=== PATIENT | female | born 1990 | race Native Hawaiian/Other Pacific Islander ===

== ENCOUNTER 2016-12-09 20:02 | Emergency (ER) | payer OTHER ==
[~2016-12-09] VITALS: Ht 160 cm; Wt 52.2 kg
[2016-12-09 21:39] VITALS: BP 127/78; TEMP 99
== END 2016-12-09 21:41 | disposition home or self-care (01) ==
LOC: ED 20:02
PROC: 2W3JX1Z Immobilization of Right Finger using Splint (ICD-10-PCS; principal; 2016-12-09)
DX: S62.606A Fracture of unspecified phalanx of right little finger, initial encounter for closed fracture (principal); W22.8XXA Striking against or struck by other objects, initial encounter; Y92.098 Other place in other non-institutional residence as the place of occurrence of the external cause
CPT/HCPCS: 99283